=== PATIENT | female | born 1950 | race Caucasian/White ===

== ENCOUNTER 2019-07-25 11:48 | Emergency (ER) | payer MEDICARE ==
[~2019-07-25 11:48] MED LIST: Iopamidol 370 76% 150 ML VIAL FS ONE
--- NOTE | 2019-07-25 12:14 | RAD ---
EXAM: Single view of the chest HISTORY: Chest pain COMPARISON: 05/30/2008 FINDINGS: Single view of the chest shows a normal sized cardiomediastinal silhouette. There is no maico dence of consolidation, mass, or pleural effusion. The bones are unremarkable. IMPRESSION: No evidence of acute cardiopulmonary disease
[2019-07-25] MEDS ORDERED: Nitroglycerin 2% Ointment 1 INCH/1 GM Packet ONE (12:18)
[2019-07-25] MEDS ORDERED: Aspirin Chewable 81 MG TAB ONE (12:18)
[2019-07-25 12:30] LABS: #Eosinphils 0.1 thou/uL (0.0-0.7); #Lymphocytes 1.3 thou/uL (1.20-3.40); #Monocytes 0.4 thou/uL (0.11-0.59); #Neutrophils 3.9 thou/uL (1.40-6.50); %Basophils 0.6 % (0.0-1.0); %Eosinophils 2.2 % (0.0-10.0); %Lymphocytes 22.1 % (21.0-51.0); %Monocytes 7.6 % (0.0-10.0); %Neutrophils 67.5 % (42.0-75.0); Hemoglobin 13.6 g/dL (12.0-16.0); Mean Corpuscular HGB CONC 32.2 g/dL (32.0-36.0); Mean Corpuscular Hemoglobin 27.7 pg (27.0-31.0); Mean Platelet Volume 7.8 fL (7.4-10.4); Platelet Count 131 thou/uL (130-400); RBC Distribution Width 12.9 % (11.5-14.5); Red Blood Cell (RBC) Count 4.93 mill/uL (4.20-5.40); White Blood Cell (WBC) Count 5.8 thou/uL (4.8-10.8)
[2019-07-25 12:46] LABS: ALT (SGPT) 13 U/L (8-55); AST (SGOT) 11 U/L (5-34); Albumin 4.4 g/dL (3.4-4.8); Alkaline Phosphatase 109 U/L (40-110); Anion Gap 14 mmol/L (10-20); BUN (Urea Nitrogen) 13 mg/dL (9.8-20.1); Bilirubin, Total 0.4 mg/dL (0.2-1.2); Calc. Creatinine Clearance 0 mL/min (70-130); Calcium 9.2 mg/dL (7.8-10.44); Carbon Dioxide 25 mmol/L (23-31); Chloride 101 mmol/L (98-107); Estimated GFR-MDRD 42; Globulin 3.1 g/dL (2.4-3.5); Glucose 376 mg/dL (80-115); Protein, Total 7.5 g/dL (6.0-8.3); Sodium 136 mmol/L (136-145)
--- NOTE | 2019-07-25 13:19 | CT ---
CTA chest with contrast: Multiple axial tomograms obtained through the chest following a pulmonary angiogram protocol with mul tiplanar reconstruction and 3-D postprocessing. INDICATIONS: Dyspnea and chest pain. Assess for pulmonary embolus. COMPARISON: None FINDINGS: Pulmonary arteries show adequate opacification. No evidence of pulmonary embolus identified. Thoracic aorta is unremarkable. No evidence of dissection. Mediastinum appears unremarkable. No adenopathy. Lung valles appear clear. No evidence of infiltrate or effusion. Images through the upper abdomen appear unremarkable. Thyroid gland is enlarged and heterogeneous suggesting diffuse goiter. Recommend clinical correlation and further evaluation with ultrasound is indicated. Osseous structures of the thorax appear unremarkable. IMPRESSION: 1. No evidence of pulmonary embolus 2. No acute lung process. 3. Enlarged heterogeneous thyroid gland
[2019-07-25] MEDS ORDERED: Morphine 2 MG/ML SYRINGE ONE (14:38)
== END 2019-07-25 14:49 | disposition short-term general hospital (02) ==
LOC: MADERS 11:48
DX: R07.2 Precordial pain (principal); R03.0 Elevated blood-pressure reading, without diagnosis of hypertension; R73.9 Hyperglycemia, unspecified; K21.9 Gastro-esophageal reflux disease without esophagitis; J45.909 Unspecified asthma, uncomplicated; Z79.899 Other long term (current) drug therapy
CPT/HCPCS: 71045; 71275; 80053; 84484; 85025; 93005; 96374; J2270